=== PATIENT | female | born 1960 | race Caucasian/White ===

== ENCOUNTER → 2021-10-25 | Outpatient (CLI) | payer BC ==
[2021-10-25 10:11] VITALS: BP 107/77; PULSE 75; RESP 17; TEMP 97.8
--- NOTE | 2021-10-25 12:20 | P.HPOB ---
History of Present Illness H&P Date: 10/25/21 Chief Complaint: The patient is here for her routine gynecologic exam. This is a 69-year-old 012 with an LMP of 2009. The patient is here to establish with this office. It has been about 4 years since her last pelvic exam. She states she saw a client service coordinator in [place] about 7 years ago. The client service coordinator was Dr. Ana Blake. At that time she states she had an abnormal Pap smear and she did undergo a colposcopic examination. The patient states her colposcopic examination showed "ELDON" and a conization was recommended. The patient does not know if the colposcopic examination revealed high-grade ELDON or low-grade ELDON. The patient states she did not feel comfortable with the client service coordinator at that time and chose to not undergo the recommended conization. She did not see another client service coordinator at that time. She later saw a GP physician about 4 years ago. She believes a Pap smear was done at that time. The patient states she was told to see a client service coordinator, but she did not. The patient states she has had a chronic discharge most of her life and during the past 2 years she has on occasion noticed some blood in the discharge. For an unknown reason, the patient states the discharge suddenly stopped about 2 months ago. She states she has not been sexually active for about 10 years. Review of Systems She thinks she has gained about 10 pounds over the past year. She denies respiratory or cardiac problems. GI: She has had intermittent diarrhea with occasional fecal incontinence. He started taking probiotics which seem to have helped. Past Medical History Past Medical History: Thyroid Disorder Additional Past Medical History / Comment(s): Hypothyroidism. 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 History of Any Multi-Drug Resistant Organisms: None Reported Past Surgical History: Breast Surgery, Tubal Ligation Additional Past Surgical History / Comment(s): Bilateral breast lumpectomies. Sinus surgery. Past Anesthesia/Blood Transfusion Reactions: No Reported Reaction Past Psychological History: Anxiety, Depression (No current depression symptoms.) Smoking Status: Current every day smoker (7 cigarettes per day) Past Alcohol Use History: None Reported Past Drug Use History: None Reported Additional History: She is and is not seeing anybody at this time. She has not been sexually active since approximately 2011. 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 - Past Family History Mother Family Medical History: Cancer Additional Family Medical History / Comment(s): Breast cancer. Obesity. Father Additional Family Medical History / Comment(s): Aortic abdominal aneurysm. Brother(s) Family Medical History: Rheumatoid Arthritis (RA) Additional Family Medical History / Comment(s): Obesity. Another brother had rheumatoid arthritis. Medications and Allergies Home Medications Medication Instructions Recorded Confirmed Type B Complex W-C No.20/Folic Acid 1 cap PO DAILY 10/25/21 10/25/21 History [Renal Caps Softgel] Levothyroxine Sodium [Tirosint-Ashly] 62.5 mcg PO DAILY 10/25/21 10/25/21 History Allergies Allergy/AdvReac Type Severity Reaction Status Date / Time Sulfa (Sulfonamide Allergy Rapid Verified 10/25/21 10:03 Antibiotics) Heart Rate Exam Vital Signs Temp Pulse Resp BP Pulse Ox 10/25/21 10:05 97.8 F 75 17 107/77 98 Intake and Output 10/24/21 10/25/21 10/25/21 22:59 06:59 14:59 Other: Weight 67.132 kg Height 5 feet 7 inches, weight 148 pounds, BMI 23.2. This is a well-developed well-nourished white female who is alert and oriented times 3 in no acute distress. HEENT: Within normal limits. NECK: Supple without mass or thyromegaly. CHEST AND LUNGS: Clear to auscultation. HEART: Regular rate and rhythm. BREASTS: Are without mass or discharge. AXILLARY EXAM: Negative for adenopathy. BACK: Negative for CVA tenderness. ABDOMEN: Soft, nontender, without palpable masses. PELVIC EXAM: Normal external genitalia with mild atrophy. Cervix and vagina appear normal mild atrophy. There is no unusual discharge or blood. There is no evidence of prolapse. The uterus is midposition, nongravid size and nontender. There are no palpable adnexal masses or tenderness. RECTAL EXAM: Rectovaginal exam is negative for mass or tenderness and is negative for occult blood. EXTREMITIES: Nontender. IMPRESSION: 1. 69-year-old menopausal female with normal gynecologic exam. 2. History of abnormal Pap smear approximately 7 years ago per the patient with some type of ELDON where cervical conization was recommended, but not done by the patient. 3. History of chronic vaginal discharge most of her life, with some blood noted in the discharge during the past 2 years. According to the patient, the chronic discharge suddenly stops 2 months ago. No significant physical findings on exam today. 4. Postmenopausal blood in the vaginal discharge during the past 2 years per the patient. Differential diagnosis will include cervical neoplasia, endometrial neoplasia or vaginitis. 5. Incomplete database. PLAN: 1. Pap smear cotest was performed. Records from Dr. Ana Blake in [place] regarding cervical abnormalities will be obtained. The patient has signed a records release. 2. Self breast awareness was discussed with the patient. We have also discussed symptoms associated with inflammatory breast cancer. 3. The patient states she is scheduled for a mammogram in the upcoming weeks. The order slip was given to the patient for this. 4. Pelvic ultrasound was recommended. This will be done to evaluate the endometrial thickness. 5. After obtaining records, the current Pap smear, and ultrasound, we will determine if anything is needed at this time. If low-grade ELDON was noted at the time 7 years ago, nothing further may be needed at this time. She understands additional workup may be necessary such as colposcopic examination, endometrial sampling, or more frequent Pap smear surveillance. I have stressed the importance of having recommended follow-up and regular examinations. 6. She has not received a Covid vaccination and has not had Covid. She understands the CDC recommends a Covid vaccination. She will consider this. 7. She was advised to return in one year for her annual well woman exam and as needed.
== END ==
LOC: WWCWWP 09:49
PROVIDERS: ATTEND Obstetrics & Gynecology
DX: Z01.419 Encounter for gynecological examination (general) (routine) without abnormal findings (principal); E03.9 Hypothyroidism, unspecified; F41.9 Anxiety disorder, unspecified; F32.A Depression, unspecified; Z79.890 Hormone replacement therapy; Z88.2 Allergy status to sulfonamides; Z87.42 Personal history of other diseases of the female genital tract

== ENCOUNTER → 2021-11-29 | Outpatient (CLI) | payer BC ==
--- NOTE | 2021-12-01 14:54 | MM ---
Reason for Exam: Screening (asymptomatic). Last mammogram was performed 3 year(s) and 9 month(s) ago. Patient History: Menarche at age 15. First Full-Term at age 24. Postmenopausal. Breast cancer, left, age 48. Previous DCIS pathology result. 08/19/2008, Excisional Biopsy on the Left side. 1989, Excisional Biopsy on the Right side. 08/10/2008, High risk Core Biopsy on the left side. Mother had breast cancer, age 55. Film Views: Bilateral CC views were taken. Bilateral MLO views were taken. Bilateral XCCL views were taken. Prior Study Comparison: 10/21/2002 Bilateral Screening Mammogram, [facility]. 11/03/2002 Left Special View Mammogram, [facility]. 07/24/2008 Bilateral Diagnostic Mammogram, [facility]. 02/21/2018 Bilateral MG screening mammo w CAD - 2, [facility]. Tissue Density: The breast tissue is heterogeneously dense. This may lower the sensitivity of mammography. Findings: Analyzed By CAD. There is no suspicious group of microcalcifications or new suspicious mass in either breast. Overall Assessment: Benign, BI-RAD 2 Management: Screening Mammogram of both breasts in 1 year. A clinical breast exam by your physician is recommended on an annual basis and results should be correlated with mammographic findings. Electronically signed and approved by: Connor Kennedy M.D. Radiologis
== END | disposition home or self-care (01) ==
LOC: RADMAMWWP 09:37
PROVIDERS: ATTEND Family Medicine
DX: Z12.31 Encounter for screening mammogram for malignant neoplasm of breast (principal); Z78.0 Asymptomatic menopausal state; Z80.3 Family history of malignant neoplasm of breast
CPT/HCPCS: 77063; 77067

== ENCOUNTER → 2022-02-20 | Outpatient (CLI) | payer BC ==
[2022-02-21 00:23] LABS: T4, Free (Free Thyroxine) 1.73 ng/dL (0.800-1.800)
== END | disposition home or self-care (01) ==
LOC: LABWHC1 15:14
PROVIDERS: ATTEND Internal Medicine Endocrinology, Diabetes & Metabolism
DX: E03.8 Other specified hypothyroidism (principal)
CPT/HCPCS: 36415; 84439; 84443; 84480

== ENCOUNTER → 2022-02-23 | Outpatient (CLI) | payer BC ==
[2022-02-23 14:32] LABS: Basophils # (A) 0.05 X 10*3/uL (0.00-0.10); Basophils % (A) 0.8 %; Eosinophils # (A) 0.21 X 10*3/uL (0.04-0.35); Eosinophils % (A) 3.2 %; HCT 39.8 % (37.2-46.3); HGB 13.6 g/dL (12.0-15.0); Immature Grans, Automated 0.3 %; Lymphocytes # (A) 1.42 X 10*3/uL (0.90-5.00); Lymphocytes % (A) 21.5 %; MCH 30.2 pg (27.0-32.0); MCHC 34.2 g/dL (32.0-37.0); MCV 88.2 fL (80.0-97.0); Mean Platelet Volume 10.7 fL (9.5-12.2); Monocytes # (A) 0.76 X 10*3/uL (0.20-1.00); Monocytes % (A) 11.5 %; NRBC Per 100 WBC 0 /100 WBCS (0.0-0.0); Neutrophils # (A) 4.14 X 10*3/uL (1.80-7.70); Neutrophils % (A) 62.7 %; Platelet Count 287 X 10*3/uL (140-440); RBC 4.51 X 10*6/uL (4.10-5.20); RDW 12.8 % (11.5-14.5)
[2022-02-23 16:01] LABS: African American GFR (CKD) 99.9 (60.0-200.0); Albumin 4.3 g/dL (3.8-4.9); Albumin/Globulin Ratio 1.85 (1.60-3.17); Anion Gap 11.9 mmol/L (10.00-18.00); BUN/Creat Ratio 13.19 Ratio (12.00-20.00); Blood Urea Nitrogen 9.9 mg/dL (9.0-27.0); Calcium 9.1 mg/dL (8.7-10.3); Carbon Dioxide 23.7 mmol/L (20.0-27.5); Globulin 2.3 g/dL (1.6-3.3); Non-African American GFR(CKD) 86.2 (60.0-200.0); Potassium 4.2 mmol/L (3.5-5.5); Prolactin 8.4 ng/mL (2.800-29.200); Total Bilirubin 0.4 mg/dL (0.30-1.20); Total Protein 6.7 g/dL (6.2-8.2)
== END | disposition home or self-care (01) ==
LOC: LABWHC1 10:00
PROVIDERS: ATTEND Internal Medicine Endocrinology, Diabetes & Metabolism
DX: E03.8 Other specified hypothyroidism (principal); R53.83 Other fatigue
CPT/HCPCS: 36415; 80053; 82306; 82533; 82607; 84146; 84443; 85025